=== PATIENT | male | born 1975 | race Caucasian/White ===

== ENCOUNTER 2024-02-16 20:05 | Emergency (ER) | payer OTHER ==
--- NOTE | 2024-02-16 20:31 | ERPHSYRPT ---
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 Patient reports she was sitting in a dark room, got out for sermon but could not concentrate and was brought enunciating words wrong, was seeing bright lights/stars and was not able to read properly. He went home and he was able to read everything fluently without any limitations. Denies any chest pain palpitations or shortness of breath, numbness tingling or focal weakness before or after the event. Patient reports having history of panic attacks with numbness tingling feeling but this was different. Patient is back to his baseline. Wants to be checked out for possible stroke. No dizziness or lightheadedness. Allergies/Adverse Reactions: No Known Drug Allergies Allergy (Unverified 02/16/24 20:22) Home Medications: Albuterol Sulfate [Albuterol Sulfate Hfa] 2 puffs IH QID PRN PRN 02/16/24 [Hist ory] Buspirone HCl 5 mg [Buspar 5 mg] 10 mg PO TID 02/16/24 [History] Cetirizine HCl [Zyrtec] 10 mg PO HS 02/16/24 [History] Mirtazapine 30 mg [Remeron 30 mg] 1 tab PO HS 02/16/24 [History] Montelukast Sodium 10 mg [Singulair 10 MG] 1 tab PO HS 02/16/24 [History] Omeprazole 40 mg PO HS 02/16/24 [History] Risankizumab-Rzaa [Skyrizi Pen] 150 mg SQ UD 02/16/24 [History] clonazePAM [Clonazepam] 0.5 mg PO DAILY PRN PRN 02/16/24 [History] clonazePAM [Clonazepam] 0.5 mg PO TID 02/16/24 [History] - Review of Systems Constitutional: No Symptoms Eyes: No Symptoms Ears, Nose, & Throat: No Symptoms Respiratory: No Symptoms Cardiac: No Symptoms, Orthopnea Genitourinary Symptoms: No Symptoms Musculoskeletal: No Symptoms Skin: No Symptoms Neurological: No Symptoms Psychological: Anxiety Endocrine: No Symptoms Hematologic/Lymphatic: No Symptoms Immunological/Allergic: No Symptoms - Nursing Vital Signs Nursing Vital Signs: Initial Vital Signs Temperature 98.3 F 02/16/24 20:06 Pulse Rate 93 H 02/16/24 20:06 Respiratory Rate 18 02/16/24 20:06 Blood Pressure 175/102 02/16/24 20:06 O2 Sat by Pulse Oximetry 96 02/16/24 20:06 Pain Scale Pain Intensity 0 - [place] Coma Scale Best Eye Response (Ana): (4) open spontaneously Best Verbal Response (Ana): (5) oriented Best Motor Response (Ana): (6) obeys commands [place] Total: 15 - Physical Exam General Appearance: no apparent distress, alert, anxiety Eye Exam: bilateral eye: normal inspection, PERRL, EOMI Ears, Nose, Throat Exam: normal ENT inspection, TMs normal, pharynx normal, moist mucous membranes Neck Exam: normal inspection, non-tender, supple, full range of motion Respiratory: normal breath sounds, lungs clear Cardiovascular: regular rate/rhythm, normal heart sounds Gastrointestinal: soft, normal bowel sounds, No tenderness Back Exam: normal inspection Extremity Exam: normal inspection, normal range of motion Mental Status: alert, oriented x 3, cooperative, 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 Exam: normal hearing, normal speech, PERRL Coordination/Gait: normal finger to nose, normal gait, normal cerebellar functi on, negative Romberg's sign Motor/Sensory: no motor deficit, no sensory deficit, no pronator drift, negative Babinski's sign DTR: bicep (R): 2+, bicep (L): 2+, knee (R): 2+, knee (L): 2+ Skin Exam: normal color SpO2 Interpretation: normal SpO2: 96 O2 Delivery: Room Air - Course EKG Interpreted by Me: RATE (89), Sinus Rhythm, NORMAL AXIS, NORMAL INTERVALS, Non-specific ST Changes Ordered Tests: Medication Summary Discontinued Medications Generic Name Dose Route Start Last Admin Trade Name Freq PRN Reason Stop Dose Admin Sodium Chloride 1,000 mls @ 999 mls/hr 02/16/24 20:21 02/16/24 22:38 Sodium Chloride 0.9% 1000 Ml IV 02/16/24 21:21 Infused .Q1H1M STA Infusion Sodium Chloride Confirm 02/16/24 20:54 Sodium Chloride 0.9% 1000 Ml Administered 02/16/24 20:55 Dose 1,000 mls @ .[facility] Lab/Rad Data: Laboratory Result Diagrams 02/16/24 20:46 02/16/24 20:46 Laboratory Results 02/16/24 02/16/24 02/16/24 Range/Units 20:50 20:46 20:46 WBC (4.23-9.07) x10^3/uL RBC (4.63-6.08) x10^6/uL Hgb (13.7-17.5) g/dL Hct (40.1-51.0) % MCV (79.0-92.2) fL MCH (25.7-32.2) pg MCHC (32.3-36.5) g/dL RDW (11.6-14.4) % Plt Count (163-337) x10^3/uL MPV (9.4-12.4) fL Gran % (34.0-67.9) % Immature Gran % (Auto) (0.001-0.429) % Nucleat RBC Rel Count (0.00-0.2) % Eos # (Auto) (0.04-0.54) x10^3/uL Immature Gran # (Auto) (0.001-0.031) x10^3u/L Absolute Lymphs (auto) (1.32-3.57) x10^3/uL Absolute Monos (auto) (0.30-0.82) x10^3/uL Absolute Nucleated RBC (0.00-0.012) x10^3u/L Lymphocytes % (21.8-53.1) % Monocytes % (5.3-12.2) % Eosinophils % (0.8-7.0) % Basophils % (0.2-1.2) % Absolute Granulocytes (1.78-5.38) x10^3/uL Basophils # (0.01-0.08) x10^3/uL Sodium 144 (135-145) mmol/L Potassium 3.8 (3.5-5.1) mmol/L Chloride 108 H (98-107) mmol/L Carbon Dioxide 21 L (22-30) mmol/L Anion Gap 19.3 H (5-15) MEQ/L BUN 16 (9-20) mg/dL Creatinine 1.01 (0.66-1.25) mg/dL Estimated GFR 90.6 ML/MIN Glucose 121 H (74-106) mg/dL POC Glucometer 100 (74 to 106) mg/dL Calcium 10.1 (8.4-10.2) mg/dL Magnesium 2.3 (1.6-2.3) mg/dL Total Bilirubin 0.60 (0.2-1.3) mg/dL AST 48 (17-59) U/L ALT 71 H (0-50) U/L Alkaline Phosphatase 68 (38-126) U/L Troponin I < 0.012 (0.000-0.033) ng/mL Serum Total Protein 8.6 H (6.3-8.2) g/dL Albumin 5.0 (3.5-5.0) g/dL Urine Color (Yellow) Urine Appearance (Clear) Urine pH (4.6-8.0) Ur Specific [place] (1.005-1.030) Urine Protein (Negative) Urine Glucose (UA) (Negative) mg/dL Urine Ketones (Negative) Urine Blood (Negative) Urine Nitrite (Negative) Urine Bilirubin (Negative) Urine Urobilinogen (0.2) mg/dL Ur Leukocyte Esterase (Negative) U Hyaline Cast (Auto) (0-2) /LPF Urine Microscopic RBC (0-5) /HPF Urine Microscopic WBC (0-5) /HPF Ur Epithelial Cells (None Seen) /HPF Urine Bacteria (None Seen) /HPF Urine Culture Reflexed (NO) 02/16/24 02/16/24 Range/Units 20:46 20:35 WBC 7.2 (4.23-9.07) x10^3/uL RBC 5.33 (4.63-6.08) x10^6/uL Hgb 16.3 (13.7-17.5) g/dL Hct 46.1 (40.1-51.0) % MCV 86.5 (79.0-92.2) fL MCH 30.6 (25.7-32.2) pg MCHC 35.4 (32.3-36.5) g/dL RDW 12.3 (11.6-14.4) % Plt Count 266 (163-337) x10^3/uL MPV 9.5 (9.4-12.4) fL Gran % 59.5 (34.0-67.9) % Immature Gran % (Auto) 0.3 (0.001-0.429) % Nucleat RBC Rel Count 0.0 (0.00-0.2) % Eos # (Auto) 0.14 (0.04-0.54) x10^3/uL Immature Gran # (Auto) 0.02 (0.001-0.031) x10^3u/L Absolute Lymphs (auto) 2.01 (1.32-3.57) x10^3/uL Absolute Monos (auto) 0.69 (0.30-0.82) x10^3/uL Absolute Nucleated RBC 0.00 (0.00-0.012) x10^3u/L Lymphocytes % 27.9 (21.8-53.1) % Monocytes % 9.6 (5.3-12.2) % Eosinophils % 1.9 (0.8-7.0) % Basophils % 0.8 (0.2-1.2) % Absolute Granulocytes 4.29 (1.78-5.38) x10^3/uL Basophils # 0.06 (0.01-0.08) x10^3/uL Sodium (135-145) mmol/L Potassium (3.5-5.1) mmol/L Chloride (98-107) mmol/L Carbon Dioxide (22-30) mmol/L Anion Gap (5-15) MEQ/L BUN (9-20) mg/dL Creatinine (0.66-1.25) mg/dL Estimated GFR ML/MIN Glucose (74-106) mg/dL POC Glucometer (74 to 106) mg/dL Calcium (8.4-10.2) mg/dL Magnesium (1.6-2.3) mg/dL Total Bilirubin (0.2-1.3) mg/dL AST (17-59) U/L ALT (0-50) U/L Alkaline Phosphatase (38-126) U/L Troponin I (0.000-0.033) ng/mL Serum Total Protein (6.3-8.2) g/dL Albumin (3.5-5.0) g/dL Urine Color Yellow (Yellow) Urine Appearance Clear (Clear) Urine pH 6.0 (4.6-8.0) Ur Specific [place] <=1.005 (1.005-1.030) Urine Protein Negative (Negative) Urine Glucose (UA) Negative (Negative) mg/dL Urine Ketones Negative (Negative) Urine Blood Negative (Negative) Urine Nitrite Negative (Negative) Urine Bilirubin Negative (Negative) Urine Urobilinogen 0.2 (0.2) mg/dL Ur Leukocyte Esterase Negative (Negative) U Hyaline Cast (Auto) NONE SEEN (0-2) /LPF Urine Microscopic RBC 0-2 (0-5) /HPF Urine Microscopic WBC 0-2 (0-5) /HPF Ur Epithelial Cells None Seen (None Seen) /HPF Urine Bacteria None Seen (None Seen) /HPF Urine Culture Reflexed NO (NO) - Progress Progress Note: 02/16/24 22:41 49 years old is evaluated in the ER for sudden onset inability to concentrate when he walked from a dark room to a bright area where he was seeing stars and was not able to read anything. Patient symptom lasted for few minutes and improved. Patient has a NIH of 0 on presentation. Stroke protocol CT head is promptly obtain followed by [facility] neurology consult who has evaluated patient and do not think patient's symptoms are neurological but more of anxiety and could have some element of visual disturbance for which needs ophthalmology follow-up. EKG is sinus rhythm with no acute ischemic changes and negative troponins. Baseline workup showed normal white count, chemistries with some element of dehydration, given fluids. Patient blood pressure is in 140s, recommended monitoring and close follow-up outpatient. Continue with current antianxiety medications. I do not think patient needs to be admitted and from [facility] neurology standpoint he is cleared. He is being discharged with outpatient follow-up and instructions to return for worsening. 02/16/24 22:44 Medical Desision Making - Discussion of managment Care discussed with:: specialist ([facility] neurology) Reviewed:: Test results Agreed on:: Treatment plan, need for follow-up - Diagnostic Testing Diagnostic test were ordered, analyzed, and reviewed by me: Yes Radiological Interpretation: Reviewed by me, Teleradiologist Report - Risk of complications The pt has a mod risk of morbidity or mortality based on: Need for prescription drug management - Departure Departure Disposition: Home Clinical Impression: Visual disturbance, Anxiety Condition: Stable Critical Care Time: No Referrals: XOCHITL DELGADILLO [Primary Care Provider] - Follow up with PCP 1 day Instructions: Anxiety, Adult ED Additional Instructions: With your primary care and ophthalmology for reevaluation. Return to ER for feeling dizzy lightheaded, visual disturbance, numbness tingling or focal weakness etc.
[2024-02-16 20:38] VITALS: TEMP 98.3
[2024-02-16 20:49] LABS: Absolute Neutrophil Ct (ANC) 4.29 x10^3/uL (1.78-5.38); BASOPHIL % 0.8 % (0.2-1.2); Basophil (Absolute #) 0.06 x10^3/uL (0.01-0.08); Eosinophil % 1.9 % (0.8-7.0); Eosinophil (Absolute #) 0.14 x10^3/uL (0.04-0.54); Hematocrit 46.1 % (40.1-51.0); Hemoglobin 16.3 g/dL (13.7-17.5); IMMATURE GRAN # 0.02 x10^3u/L (0.001-0.031); IMMATURE GRAN % 0.3 % (0.001-0.429); Lymphocyte (Absolute #) 2.01 x10^3/uL (1.32-3.57); Lymphocytes % 27.9 % (21.8-53.1); Mean Cell Volume 86.5 fL (79.0-92.2); Mean Corpuscular Hemoglobin 30.6 pg (25.7-32.2); Mean Corpuscular Hgb Concent. 35.4 g/dL (32.3-36.5); Mean Platelet Volume 9.5 fL (9.4-12.4); Monocyte (Absolute #) 0.69 x10^3/uL (0.30-0.82); Monocytes % 9.6 % (5.3-12.2); Neutrophil % 59.5 % (34.0-67.9); Platelet Count 266 x10^3/uL (163-337); Red Blood Count 5.33 x10^6/uL (4.63-6.08); Red Cell Distribution Width 12.3 % (11.6-14.4); White Blood Count 7.2 x10^3/uL (4.23-9.07)
[2024-02-16] MEDS ORDERED: Sodium Chloride 0.9% 1000 ML 1,000 ML ONE (20:54)
--- NOTE | 2024-02-16 20:54 | XRAY ---
CLINICAL HISTORY: STROKE LIKE SYMPTOMS COMPARISON: None. TECHNIQUE: Axial noncontrast CT scan of the brain was performed from the skull base to the high parietal region with coronal and sagittal reformats. One of the following dose reduction techniques was utilized for this exam: Automated exposure control, adjustment of the mA and/or kV according to patient size, use of iterative reconstruction. CTDI:53.92mGy, DLP: 1098.70mGy*cm. FINDINGS: The visualized brain parenchyma shows normal appearance. Schwartz-white matter differentiation is maintained. No midline shifts or deformity. No intracerebral or extra axial hematoma. Normal size and configuration of the cerebral ventricles. Normal CT appearance of the posterior fossa structures namely the cerebellar hemispheres, brainstem and cerebellar peduncles. The cerebello-pontine angles are clear. The osseous structures in the skull base are unremarkable. No definite calvarium fractures. The scanned paranasal sinuses are clear. Left nasal septal deviation. IMPRESSION: 1. No established infarction or hemorrhage in plain CT brain at present. 2. Early changes of acute ischemic infarct may sometimes not be detected on a CT scan. If clinically suspicious, MRI with diffusion-weighted imaging is recommended for further evaluation. 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 Electronically Signed by: Pricilla Jasmine MD. (02/16/2024 20:49:51 EDT)
[2024-02-16] MEDS: Sodium Chloride 0.9% 1000 ML 1,000 ML IV STA (20:56)
[2024-02-16 21:03] LABS: Appearance Clear (Clear); Bacteria None Seen /HPF (None Seen); Bilirubin Negative (Negative); Blood Negative (Negative); Epithelial Cells None Seen /HPF (None Seen); Glucose, Urine Negative (Negative); Hyaline Casts NONE SEEN /LPF (0-2); Ketones Negative (Negative); Leukocyte Esterase Negative (Negative); Nitrite Negative (Negative); Protein,Urine Dip Negative (Negative); RBC 0-2 /HPF (0-5); Specific Gravity <=1.005 (1.005-1.030); Urobilinogen 0.2 mg/dL (0.2); WBC 0-2 /HPF (0-5)
[2024-02-16 21:06] LABS: ANION GAP 19.3 MEQ/L (5-15); BILIRUBIN,TOTAL 0.6 mg/dL (0.2-1.3); Calcium 10.1 mg/dL (8.4-10.2); Creatinine 1 1.01 mg/dL (0.66-1.25); EST GLOMERULAR FILTRATION RATE 90.6 ML/MIN; MAGNESIUM 2.3 mg/dL (1.6-2.3); Potassium 3.8 mmol/L (3.5-5.1); Total Protein 8.6 g/dL (6.3-8.2)
[2024-02-16 22:42] VITALS: BP 134/87; PULSE 80; RESP 16
[2024-02-16 22:44] VITALS: O2SAT 96
== END 2024-02-16 22:43 | disposition home or self-care (01) ==
LOC: ED 20:05
DX: H53.9 Unspecified visual disturbance (principal); F41.9 Anxiety disorder, unspecified; Z79.899 Other long term (current) drug therapy
CPT/HCPCS: 36000; 36415; 70450; 80053; 81001; 82947; 83735; 84484; 85025; 93005; 99284; Q3014